=== PATIENT | male | born 1945 | race Two or more races ===

== ENCOUNTER 2017-08-27 15:04 | Inpatient (IN) | payer MEDICARE, MEDICAID ==
[~2017-08-27] VITALS: Ht 175.3 cm; Wt 70.3 kg
[2017-08-27] MEDS ORDERED: ACET-868 PO (15:49)
[2017-08-27] MEDS ORDERED: POLY15DR58 EACHEYE (15:49)
[2017-08-27] MEDS ORDERED: AMIN887L PO (15:49)
[2017-08-27] MEDS ORDERED: FURO-145 PO (15:49)
[2017-08-27] MEDS ORDERED: CHOL200026 PO (15:49)
[2017-08-27] MEDS ORDERED: TAMS-12 PO (15:49)
[2017-08-27] MEDS ORDERED: AMLO5TAB4 PO (15:49)
[2017-08-27] MEDS ORDERED: POTA20TA10 PO (15:49)
[2017-08-27] MEDS ORDERED: DOCU-25 PO (15:49)
[2017-08-27] MEDS ORDERED: VALP250S PO (15:49)
--- NOTE | 2017-08-27 18:57 | NUR ---
PATIENT ATE HALF A SANDWICH AND A CUP OF PINEAPPLE
[2017-08-27 20:01] VITALS: BP 128/77
--- NOTE | 2017-08-27 20:18 | NUR ---
PT SLEEPING. NO DISTRESS NOTED. PT IS CONFUSED AND RESISTANT TO CARE. CONTINUE TO MONITOR.
[2017-08-27] MEDS ORDERED: ACETAMINOPHEN 325 MG TABLET PO PRN (20:30)
[2017-08-27] MEDS ORDERED: ZOLPIDEM TARTRATE 5 MG TABLET PO PRN (20:30)
[2017-08-27] MEDS ORDERED: Z GUARD REMEDY 2 OZ OINT TP PRN (20:30)
[2017-08-27] MEDS ORDERED: MAGNESIUM HYDROXIDE 30 ML UDC PO PRN (20:30)
[2017-08-27] MEDS ORDERED: ONDANSETRON HCL/PF 4 MG/2 ML VIAL IVP PRN (20:30)
[2017-08-27] MEDS ORDERED: DOCUSATE SODIUM 100 MG CAPSULE PO PRN (20:30)
[2017-08-27] MEDS ORDERED: HYDROCODONE/APAP 5/325MG 1 EACH TABLET PO PRN (20:30)
[2017-08-27] MEDS ORDERED: MAG HYDROX/AL HYDROX/SIMETH 30 ML UDC PO PRN (20:30)
[2017-08-27] MEDS: VALPROIC ACID 250 MG/5 ML UDC PO SCH (21:12)
[2017-08-27] MEDS: CHOLECALCIFEROL 1,000 UNIT TABLET (VIT D3) PO SCH (21:12)
--- NOTE | 2017-08-27 23:02 | NUR ---
PT CONTINUES TO. PT COMBATIVE WHEN DISTURBED. CONTINUE TO MONITOR
[2017-08-28 00:33] LABS: BASOPHILS # (AUTO) 0.1 /CMM (0.0-0.2); BASOPHILS % (AUTO) 0.8 % (0.0-2.0); EOSINOPHILS # (AUTO) 0.2 /CMM (0.0-0.7); EOSINOPHILS % (AUTO) 2.8 % (0.0-6.0); HEMATOCRIT 47 % (39-51); HEMOGLOBIN 15.7 g/dL (13.5-17.5); LYMPHOCYTES # (AUTO) 1.7 /CMM (0.8-4.8); LYMPHOCYTES % (AUTO) 25.8 % (20.0-44.0); MEAN CORPUSCULAR HEMOGLOBIN 32 PG (26.0-33.0); MEAN CORPUSCULAR HGB CONC 33 g/dl (31.0-36.0); MEAN CORPUSCULAR VOLUME 96 fL (80-96); MONOCYTES # (AUTO) 0.7 /CMM (0.1-1.30); NEUTROPHILS # (AUTO) 3.9 /CMM (1.8-8.9); NEUTROPHILS % (AUTO) 59.6 % (43.0-81.0); PLATELET COUNT (AUTO) 105 /CMM (150-450); RDW COEFFICIENT OF VARIATION 12.6 (11.5-15.0); WHITE BLOOD COUNT (AUTO) 6.6 K/uL (4.3-11.0)
--- NOTE | 2017-08-28 00:34 | NUR ---
BLOOD DRAWN FOM PT AND SENT TO LAB. PT URINATED ON HIMSELF. CHANGED PT CLOTHES. PLACED A DIAPER ON THE PT. CHANGED THE SHEETS AND BLANKETS. PT RESTING COMFORTABLY NOW.
[2017-08-28 00:55] LABS: CARBON DIOXIDE 28 mmol/L (21-32); CHLORIDE 109 mmol/L (98-107); CREATININE 0.7 mg/dL (0.6-1.3); GLUCOSE 95 mg/dL (74-106); MAGNESIUM 1.9 mg/dL (1.8-2.4); PHOSPHORUS 3.7 mg/dL (2.5-4.9); POTASSIUM 5.4 mmol/L (3.5-5.1); SODIUM SERUM 141 mmol/L (136-145); UREA NITROGEN, BLOOD 14 mg/dL (7-18)
--- NOTE | 2017-08-28 01:00 | NUR ---
POTASSIUM LEVEL SLIGHTLY ELEVATED. CHARGE NURSE INFORMED. CHARGE NURSE SUGGESTED TO HOLD MORNING POTASSIUM.
--- NOTE | 2017-08-28 02:19 | NUR ---
PT SLEEPING. CONTINUE TO MONITOR.
[2017-08-28 05:11] VITALS: BP 140/54
--- NOTE | 2017-08-28 06:09 | NUR ---
PT SLEEPING. CONTINUE TO MONITOR.
[2017-08-28 08:00] VITALS: BP 130/59
[2017-08-28] MEDS: PROSOURCE / PROSTAT (PYXIS) 30 ML UDC PO SCH (09:00)
[2017-08-28] MEDS: POTASSIUM CHLORIDE 20 MEQ TAB.PRT.SR PO SCH ×2 (09:00→17:00)
--- NOTE | 2017-08-28 09:00 | NUR ---
ATTEMPTED TO PLACE IV ACCESS, PT COMBATIVE. NO IV MEDS ORDERED. K 4.5 WILL HOLD PO KCL.
--- NOTE | 2017-08-28 09:00 | NUR ---
PT AOX1, VSS, ASSISTED WITH AM HYGIENE . BED/BATH / SKIN CARE PROVIDED
--- NOTE | 2017-08-28 10:00 | NUR ---
MEDICATED SCHEDULED. VSS.
[2017-08-28] MEDS: VALPROIC ACID 250 MG/5 ML UDC PO SCH ×3 (10:42→17:41)
[2017-08-28] MEDS: POLYVINYL ALCOHOL 15 ML BOTTLE EACHEYE SCH ×3 (10:42→17:41)
[2017-08-28] MEDS: TAMSULOSIN 0.4 MG CAP.SR.24H PO SCH (10:43)
[2017-08-28] MEDS: FUROSEMIDE 20 MG TABLET PO SCH (10:44)
[2017-08-28] MEDS: AMLODIPINE BESYLATE 5 MG TABLET PO SCH (10:44)
--- NOTE | 2017-08-28 12:15 | NUR ---
DR WESTFALL HERE TO SEE PT. UPDATED ON PT PROGRESS.
[2017-08-28] MEDS: CHOLECALCIFEROL 1,000 UNIT TABLET (VIT D3) PO SCH (13:43)
[2017-08-28 14:00] VITALS: BP 130/59
--- NOTE | 2017-08-28 14:41 | NUR ---
REPORT TO MED-SURGE NURSE MONTRELL. PT BY CARMELITA TO ROOM 108, AT WITH PT. PUBLIC HEALTH NUTRITIONIST NOTIFIED PT REFUSED HL.
--- NOTE | 2017-08-28 15:00 | NUR ---
RN INITIAL NOTES RECEIVED PT VIA CARMELITA, ENDORSED BY MARCIO A/O X 2 , TOLERATING ROOM AIR , NO SIGNS OF RESPIRATORY DISTRESS. VITAL SIGNS ARE STABLE UPON ENDORSEMENT. CHECK FOR WOUNDS DONE. SIDE RAILS UP X 2, WILL CONTINUE TO MONITOR
[2017-08-28 16:00] VITALS: BP 135/91
--- NOTE | 2017-08-28 16:15 | NUR ---
RN NOTE TRIED MULTIPLE TIMES TO TAKE PICTURES ON LEGS FOR SCRATCHES. PT REFUSED AND VERY RESTLESS. CONTINUOUSLY MOVING AND COVERING LEGS WITH BLANKET. STATING TO LEAVE HIM ALONE AND LET HIM SLEEP. PHOTO TAKEN AND PUT IN CHART.
--- NOTE | 2017-08-28 17:30 | NUR ---
RN NOTES POTASSIUM NOT GIVEN , POTASSIUM LEVEL OF THE PATIENT IS 5.4
[2017-08-28 20:00] VITALS: BP 125/73
--- NOTE | 2017-08-28 20:00 | NUR ---
RN INITIAL NOTES PT IS VERY RESTLESS IN BED, A/O X 1, TOLERATING ROOM AIR , NO SIGNS OF RESPIRATORY DISTRESS. VITAL SIGNS ARE STABLE. SIDE RAILS UP X 2, BED ALARM ON, RN WILL CONTINUE TO MONITOR
--- NOTE | 2017-08-29 07:12 | NUR ---
RN INITIAL NOTES: REC'D PT ON BED, NOT IN ANY DISTRESS, A/O X 2, TAIWANESE SPEAKING. ON ROOM AIR, NO SOB. NO IV ACCESS NOTED, PT REFUSING. EXPLAINED RISK AND BENEFITS, STRONGLY REFUSED AT THIS TIME, WILL ATTEMPT LATER ON. PROVIDED COMFORT & SAFETY MEASURES. BED KEPT LOW & IN LOCKED POS. CALL LIGHT PLACED W/IN REACH. WILL CONTINUE TO MONITOR & ATTEND PT NEEDS.
--- NOTE | 2017-08-29 07:23 | NUR ---
RN CLOSING NOTES PT IS VERY RESTLESS IN BED, A/O X 1, TOLERATING ROOM AIR , NO SIGNS OF RESPIRATORY DISTRESS. VITAL SIGNS ARE STABLE. SIDE RAILS UP X 2, BED ALARM ON, RN WILL ENDORSE TO AM NURSE.
[2017-08-29 08:00] VITALS: BP_SYST 135; BP_SYST 164; BP_DIAS 72; BP_DIAS 73
[2017-08-29] MEDS: AMLODIPINE BESYLATE 5 MG TABLET PO SCH (09:02)
[2017-08-29] MEDS: VALPROIC ACID 250 MG/5 ML UDC PO SCH ×3 (09:02→17:22)
[2017-08-29] MEDS: CHOLECALCIFEROL 1,000 UNIT TABLET (VIT D3) PO SCH (09:02)
[2017-08-29] MEDS: PROSOURCE / PROSTAT (PYXIS) 30 ML UDC PO SCH (09:03)
[2017-08-29] MEDS: FUROSEMIDE 20 MG TABLET PO SCH (09:03)
[2017-08-29] MEDS: TAMSULOSIN 0.4 MG CAP.SR.24H PO SCH (09:03)
[2017-08-29] MEDS: POTASSIUM CHLORIDE 20 MEQ TAB.PRT.SR PO SCH ×2 (09:03→17:22)
[2017-08-29] MEDS: POLYVINYL ALCOHOL 15 ML BOTTLE EACHEYE SCH ×3 (09:05→17:23)
[2017-08-29 15:43] VITALS: BP 131/73
[2017-08-29 16:00] VITALS: BP 131/71
--- NOTE | 2017-08-29 18:28 | NUR ---
RN CLOSING NOTES: NO ACUTE CHANGES NOTED W/IN SHIFT. PT TOLERATED ROOM AIR, NO SOB. STILL PT DOESN'T WANT IV ACCESS. KEPT WELL RESTED. NEEDS ATTENDED. BED KEPT LOW & IN LOCKED POS. CALL LIGHT PLACED W/IN REACH. WILL ENDORSE TO PM RN FOR CARL.
[2017-08-29 20:00] VITALS: BP 105/66
[2017-08-30 04:00] VITALS: BP 149/82
[2017-08-30 08:00] VITALS: BP 109/61
[2017-08-30] MEDS: VALPROIC ACID 250 MG/5 ML UDC PO SCH ×3 (08:43→17:10)
[2017-08-30] MEDS: CHOLECALCIFEROL 1,000 UNIT TABLET (VIT D3) PO SCH (08:44)
[2017-08-30] MEDS: TAMSULOSIN 0.4 MG CAP.SR.24H PO SCH (08:44)
[2017-08-30] MEDS: FUROSEMIDE 20 MG TABLET PO SCH (08:44)
[2017-08-30] MEDS: AMLODIPINE BESYLATE 5 MG TABLET PO SCH (08:44)
[2017-08-30] MEDS: PROSOURCE / PROSTAT (PYXIS) 30 ML UDC PO SCH (08:44)
[2017-08-30] MEDS: POTASSIUM CHLORIDE 20 MEQ TAB.PRT.SR PO SCH ×2 (08:45→17:09)
[2017-08-30] MEDS: POLYVINYL ALCOHOL 15 ML BOTTLE EACHEYE SCH ×3 (08:45→17:00)
--- NOTE | 2017-08-30 11:54 | NUR ---
MS RN NOTE 0720: Received patient resting well, A/Ox2, Swedish speaking but able to understand little Croatian. No respiratory distress noted, tolerated room air. No c/o any discomfort at this time. Refused am labs per previous nurse. 0830: Ate 100% of the breakfast. Encouraged to have the blood draw but still refused after explaining the benefits of having the labs. Lasix given, held K for episode of high K from last labs. Will inform MD. 1130: No any significant changes noted. Changed patient's diaper, noted with large amount of urine, no foul odor.
[2017-08-30 12:55] LABS: BASOPHILS % (AUTO) 0.6 % (0.0-2.0); EOSINOPHILS # (AUTO) 0.3 /CMM (0.0-0.7); HEMATOCRIT 42 % (39-51); HEMOGLOBIN 14.2 g/dL (13.5-17.5); LYMPHOCYTES # (AUTO) 1.4 /CMM (0.8-4.8); LYMPHOCYTES % (AUTO) 31.2 % (20.0-44.0); MEAN CORPUSCULAR HEMOGLOBIN 33 PG (26.0-33.0); MEAN CORPUSCULAR HGB CONC 34 g/dl (31.0-36.0); MEAN CORPUSCULAR VOLUME 97 fL (80-96); MONOCYTES # (AUTO) 0.5 /CMM (0.1-1.30); MONOCYTES % (AUTO) 10.4 % (2.0-12.0); NEUTROPHILS # (AUTO) 2.3 /CMM (1.8-8.9); NEUTROPHILS % (AUTO) 50.8 % (43.0-81.0); PLATELET COUNT (AUTO) 84 /CMM (150-450); RDW COEFFICIENT OF VARIATION 12.9 (11.5-15.0); RED BLOOD CELL COUNT(AUTO) 4.36 MIL/uL (4.5-6.0); WHITE BLOOD COUNT (AUTO) 4.4 K/uL (4.3-11.0)
[2017-08-30 13:22] LABS: BAND % (MANUAL) 1 % (0.0-5.0); EOSINOPHILS % (MANUAL) 5 % (0-4); LYMPHOCYTES % (MANUAL) 35 % (16-48); MONOCYTES % (MANUAL) 9 % (0-11.0); NEUTROPHILS % (MANUAL) 50 (42-76)
[2017-08-30 14:02] LABS: CALCIUM, SERUM 8.4 mg/dL (8.5-10.1); CARBON DIOXIDE 27 mmol/L (21-32); CHLORIDE 108 mmol/L (98-107); CREATININE 0.9 mg/dL (0.6-1.3); GLUCOSE 109 mg/dL (74-106); POTASSIUM 4.1 mmol/L (3.5-5.1); SODIUM SERUM 143 mmol/L (136-145); UREA NITROGEN, BLOOD 24 mg/dL (7-18)
--- NOTE | 2017-08-30 14:30 | NUR ---
RN notes: report received from Dion Linares, and received pt in bed awake, alert verbally responsive, pt's in room with pt, no distress.
--- NOTE | 2017-08-30 14:30 | NUR ---
RN NOTE Endorsed to Vik Linares for CARL. No any changes. Labs in, no critical value noted. S/E by Dion MCCURDY, with repeat labs in am.
[2017-08-30 16:00] VITALS: BP_SYST 109; BP_SYST 117; BP_DIAS 55; BP_DIAS 61
--- NOTE | 2017-08-30 19:17 | NUR ---
End RN notes: [facility], try to give report x3 but unable, left mesages, pt will be leaving per stationary engineer supervisor and Cn, pt is stable, no respiratory distress, no s/s of sob.
[2017-08-30 20:00] VITALS: BP 128/70
[2017-08-31 04:00] VITALS: BP 117/62
--- NOTE | 2017-08-31 07:30 | NUR ---
RN AM NOTES: REC'D PT IN BED, NOT IN ANY DISTRESS, A/O X 2, SAMI SPEAKING. ON ROOM AIR, NO SOB. NO IV ACCESS NOTED, ON DIAPER, INTACT SKIN, NO SKIN BREAKDOWN ONLY SCRATCHES ON LOWER LEGS, REGULAR DIET, BED BOUND, SAFETY MEASURES IN PLACE. BED KEPT LOW & IN LOCKED POS. CALL LIGHT PLACED W/IN REACH. WILL CONTINUE TO MONITOR & ATTEND PT NEEDS. PATIENT FOR DISCHARGE BACK TO [facility] TODAY.
[2017-08-31 08:00] VITALS: BP 131/77
[2017-08-31] MEDS: FUROSEMIDE 20 MG TABLET PO SCH (09:10)
[2017-08-31] MEDS: AMLODIPINE BESYLATE 5 MG TABLET PO SCH (09:10)
[2017-08-31] MEDS: CHOLECALCIFEROL 1,000 UNIT TABLET (VIT D3) PO SCH (09:10)
[2017-08-31] MEDS: TAMSULOSIN 0.4 MG CAP.SR.24H PO SCH (09:10)
[2017-08-31] MEDS: POTASSIUM CHLORIDE 20 MEQ TAB.PRT.SR PO SCH (09:10)
[2017-08-31] MEDS: PROSOURCE / PROSTAT (PYXIS) 30 ML UDC PO SCH (09:10)
[2017-08-31] MEDS: VALPROIC ACID 250 MG/5 ML UDC PO SCH (09:10)
[2017-08-31] MEDS: POLYVINYL ALCOHOL 15 ML BOTTLE EACHEYE SCH (09:11)
--- NOTE | 2017-08-31 09:30 | NUR ---
MS RN NOTES ADMINSITERED DUE MEDS.
[2017-08-31 10:58] VITALS: BP 141/68
--- NOTE | 2017-08-31 10:58 | NUR ---
MS RN NOTES PT DISCHARGED TO [facility] TODAY PER MD IN STABLE CONDITION. PROVIDED DC INSTRUCTIONS, MED RECON LIST AND HEALTH TEACHINGS. TO BE FOLLOWED UP BY FACILITY'S MD. NO IV ACCESS. ALL BELONGINGS CHECKED AND RETURNED. ALL PAPERWORKS SIGNED. REFUSED FURTHER PHOTOS OF SKIN ISSUES, STATED IT WAS TAKEN YESTERDAY. ALL PAPERWORKS SIGNED. REPORT GIVEN TO [facility] STAFF EARLIER. ALL PAPER WORKS SIGNED. PATIENT PICKED UP BY 2 [facility] CRE[facility] TO TAKE TO FACILITY.
== END 2017-08-31 10:59 | DRG 917 ==
LOC: ER 15:06 → TRANSITION 17:46 → MEDSG1 08-28 15:45
PROVIDERS: ADMIT Internal Medicine; ATTEND Internal Medicine
DX: T59.811A Toxic effect of smoke, accidental (unintentional), initial encounter (principal); J96.00 Acute respiratory failure, unspecified whether with hypoxia or hypercapnia; E87.5 Hyperkalemia; J70.5 Respiratory conditions due to smoke inhalation; D69.6 Thrombocytopenia, unspecified; I11.0 Hypertensive heart disease with heart failure; I50.9 Heart failure, unspecified; F03.90 Unspecified dementia, unspecified severity, without behavioral disturbance, psychotic disturbance, mood disturbance, and anxiety; Y92.129 Unspecified place in nursing home as the place of occurrence of the external cause; H54.8 Legal blindness, as defined in USA; K21.9 Gastro-esophageal reflux disease without esophagitis; M81.0 Age-related osteoporosis without current pathological fracture; Z87.11 Personal history of peptic ulcer disease; Z79.899 Other long term (current) drug therapy; N40.0 Benign prostatic hyperplasia without lower urinary tract symptoms; K74.60 Unspecified cirrhosis of liver
CPT/HCPCS: 36415; 80048-TC; 83735-TC; 84100-TC; 85025-TC; 87081-TC; A4606; J2405; Z7610